=== PATIENT | female | born 1930 | race Hispanic/Latino ===

== ENCOUNTER 2017-09-28 17:07 | Emergency (ER) | payer OTHER ==
[~2017-09-28 17:07] MED LIST: ALEN70TA47 PO; CIPR250T6 PO; HUM10VIA SQ; LOSA1TAB37 PO; METF500T6 PO; PRAV10TA39 PO; SERT25TA5 PO
[2017-09-28] MEDS ORDERED: SODIUM CHLORIDE 0.9% 1000ML 1,000 ML IV ONE (18:08)
[2017-09-28] MEDS ORDERED: LOPERAMIDE HCL 2 MG CAP PO ONE (18:08)
== END 2017-09-28 19:02 | disposition home or self-care (01) ==
LOC: EDH 17:07
DX: R19.7 Diarrhea, unspecified (principal); R06.02 Shortness of breath; R42 Dizziness and giddiness; E11.9 Type 2 diabetes mellitus without complications; E78.5 Hyperlipidemia, unspecified; I10 Essential (primary) hypertension; Z90.79 Acquired absence of other genital organ(s)
CPT/HCPCS: 99284; J7030

== ENCOUNTER 2018-10-28 10:58 | Observation (INO) | payer OTHER ==
[~2018-10-28] VITALS: Ht 154.9 cm; Wt 75.5 kg
[~2018-10-28 10:58] MED LIST changes: +ALEN70TA10 PO; -ALEN70TA47 PO; +METF-444 PO; -METF500T6 PO
[2018-10-28 11:24] LABS: BASOPHILS % (AUTO) 0.1 % (0.0-5.0); EOSINOPHILS % (AUTO) 0.8 % (0.0-8.0); HEMATOCRIT 33.1 % (36-48); LYMPHOCYTES % (AUTO) 12.9 % (21.0-51.0); MEAN CORPUSCULAR HEMOGLOBIN 31.9 pg (27.0-33.0); MEAN CORPUSCULAR HGB CONC 34.1 g/dL (32.0-36.0); MEAN CORPUSCULAR VOLUME 93.7 fL (79-99); MONOCYTES % (AUTO) 6.8 % (3.0-13.0); NEUTROPHILS % (AUTO) 79.4 % (40.0-77.0); NUCLEATED RED BLOOD CELLS 0.1 % (0.0-0.19); PLATELET COUNT (AUTO) 164 K/uL (130-400); RED BLOOD CELL COUNT(AUTO) 3.54 MIL/uL (4.00-5.50); RED CELL DISTRIBUTION WIDTH 14.5 % (11.0-15.5); WHITE BLOOD COUNT (AUTO) 6.5 K/uL (4.8-10.8)
[2018-10-28 11:37] LABS: CREATININE 1.8 mg/dL (0.5-1.5); POTASSIUM 4.2 mmol/L (3.5-5.1)
[2018-10-28 11:41] LABS: BILIRUBIN,TOTAL 0.2 mg/dL (0.2-1.0); TOTAL PROTEIN, SERUM 6.6 g/dL (6.0-8.3)
[2018-10-28 11:58] LABS: INR 1.02 (0.85-1.15); PROTHROMBIN TIME 10.7 SEC (9.6-11.6)
[2018-10-28 12:26] LABS: PARTIAL THROMBOPLASTIN TIME 29.2 SEC (26.3-35.5)
[2018-10-28 13:31] LABS: APPEARANCE,URINE CLEAR (CLEAR); BILIRUBIN,URINE NEGATIVE (NEGATIVE); COLOR,URINE YELLOW (YELLOW); GLUCOSE, URINE (UA) NEGATIVE (NEGATIVE); KETONES,URINE NEGATIVE (NEGATIVE); LEUKOCYTE ESTERASE ,URINE SMALL (NEGATIVE); NITRATE,URINE POSITIVE (NEGATIVE); OCCULT BLOOD,URINE NEGATIVE (NEGATIVE); PH,URINE 5.5 (5.0-8.0); PROTEIN,URINE NEGATIVE (NEGATIVE); UROBILINOGEN,URINE 0.2 mg/dL (0.2-1.0)
[2018-10-28 13:41] LABS: RBC,URINE 0-1 /HPF (0-1)
[2018-10-28 13:42] LABS: BACTERIA,URINE Many /HPF (None Seen); SQUAMOUS EPITHELIAL CELL,UR Rare /HPF (0-2)
[2018-10-28] MEDS ORDERED: METRONIDAZOLE 500MG/100ML BAG 100 ML ONE (15:35)
[2018-10-28 16:23] LABS: AMYLASE 34 U/L (25-115); LIPASE 70 U/L (114-286)
[2018-10-28] MEDS: LACTATED RINGERS 1000ML 1,000 ML IV SCH (16:30)
[2018-10-28] MEDS: INSULIN R PO SS1 SQ SCH ×2 (16:30→21:00)
[2018-10-28] MEDS ORDERED: LACTATED RINGERS 1000ML 1,000 ML IV ONE (16:51)
[2018-10-28 23:02] VITALS: BP 111/72
[2018-10-29] MEDS: METRONIDAZOLE 500MG/100ML BAG 100 ML IVPB SCH ×2 (00:58→06:12)
[2018-10-29] MEDS ORDERED: ASPI-555 PO (01:03)
[2018-10-29] MEDS ORDERED: ERGO500014 PO (01:03)
[2018-10-29] MEDS ORDERED: ACET-2900 PO (01:03)
[2018-10-29] MEDS: LACTATED RINGERS 1000ML 1,000 ML IV SCH (03:04)
[2018-10-29 03:58] VITALS: BP 102/64
[2018-10-29 04:56] LABS: HEMATOCRIT 30.9 % (36-48); MEAN CORPUSCULAR HEMOGLOBIN 31.2 pg (27.0-33.0); MEAN CORPUSCULAR HGB CONC 33.7 g/dL (32.0-36.0); MEAN CORPUSCULAR VOLUME 92.8 fL (79-99); PLATELET COUNT (AUTO) 165 K/uL (130-400); RED BLOOD CELL COUNT(AUTO) 3.34 MIL/uL (4.00-5.50); RED CELL DISTRIBUTION WIDTH 14.4 % (11.0-15.5); WHITE BLOOD COUNT (AUTO) 5.9 K/uL (4.8-10.8)
[2018-10-29 05:11] LABS: ALBUMIN 2.4 g/dL (3.5-5.0); BILIRUBIN,TOTAL 0.2 mg/dL (0.2-1.0); CREATININE 0.9 mg/dL (0.5-1.5); POTASSIUM 3.8 mmol/L (3.5-5.1); TOTAL PROTEIN, SERUM 5.6 g/dL (6.0-8.3)
[2018-10-29] MEDS ORDERED: ACETAMINOPHEN 325 MG TAB PO PRN (05:30)
[2018-10-29 07:00] VITALS: BP 117/65
[2018-10-29] MEDS: INSULIN HUMULIN R 100 UNIT/ML 3ML SQ SCH ×2 (07:07→11:30)
--- NOTE | 2018-10-29 08:54 | NUR ---
Pt Update Pt admitted through the ER with complaints of diarrhea and GBW brought from home by EMS, no episodes of diarrhea since admission, gentle hydration continues, on empiric abx tx, nursing will continue to monitor, care endorsed.
[2018-10-29] MEDS ORDERED: ERGOCALCIFEROL (VITAMIN D2) 50,000 UNIT CAPSULE PO SCH (09:00)
[2018-10-29] MEDS ORDERED: LOSARTAN 50 MG TABLET PO SCH (09:00)
[2018-10-29] MEDS ORDERED: HYDROCHLOROTHIAZIDE 25 MG TABLET PO SCH (09:00)
[2018-10-29] MEDS ORDERED: ASPIRIN 81MG TAB.CHEW PO SCH (09:00)
--- NOTE | 2018-10-29 09:29 | NUR ---
VITAMIN D2 NOT GIVEN THIS AM, PATIENT TAKES ON THURSDAY.
[2018-10-29 11:00] VITALS: BP 135/68
--- NOTE | 2018-10-29 11:22 | NUR ---
DCP CM met with pt discussed dc plans. Pt is independent prior to admission, lives at home w/daughter. Pt has a cane at home. Denies any other equipments/services. Pt feels safe to go back home, daughter able to assist with transportation and needs. DC plan to home once stable. CM to cont to follow up. Addendum: 10/29/18 at 1125 by SARTHAK CRAWFORD LVN CM Amended: Links added.
[2018-10-29 16:00] VITALS: BP 159/79
--- NOTE | 2018-10-29 18:30 | NUR ---
DISCHARGE PATIENT/SON GIVEN DISCHARGE INSTRUCTIONS VIA TEACH BACK. 20G PIV TO LH DISCONTINUED, TIP INTACT. NO RX GIVEN, PATIENT TO STOP HYDROCHLOROTHIAZIDE UNTIL FOLLOW UP WITH DR. GALLEGO. PATIENT STABLE AT THIS TIME.
[2018-10-29] MEDS ORDERED: SERTRALINE HCL 50 MG TABLET PO SCH (21:00)
[2018-10-29] MEDS ORDERED: ***HM***Pravastatin Sodium 10 MG PO SCH (21:00)
[2018-10-30] MEDS ORDERED: ALENDRONATE SODIUM 35 MG TAB PO SCH (06:30)
== END 2018-10-29 18:45 | disposition home or self-care (01) ==
LOC: EDH 10:58 → EDHIP 15:05 → 3AH 22:30
PROVIDERS: ADMIT Internal Medicine Critical Care Medicine; ATTEND Internal Medicine Critical Care Medicine
DX: E86.0 Dehydration (principal); E86.9 Volume depletion, unspecified; E11.9 Type 2 diabetes mellitus without complications; E66.9 Obesity, unspecified; E78.5 Hyperlipidemia, unspecified; I10 Essential (primary) hypertension; F32.9 Major depressive disorder, single episode, unspecified; Z90.710 Acquired absence of both cervix and uterus; Z90.49 Acquired absence of other specified parts of digestive tract; Z79.899 Other long term (current) drug therapy; Z79.01 Long term (current) use of anticoagulants
CPT/HCPCS: 36415 ×2; 71045; 80053 ×2; 81001; 82150; 82550; 82948 ×5; 83690; 84484; 85025; 85027; 85610; 85730; 93005; 96361; 96365; 96366; 97039; 97161; 99291; G0378 ×28; G8978; G8979; G8980; G8981; G8982; G8983; J3490 ×4; J7120 ×2

== ENCOUNTER 2019-05-28 07:13 | Emergency (ER) | payer OTHER ==
[~2019-05-28 07:13] MED LIST changes: +ACET-3194 PO; +ASPI-555 PO; -CIPR250T6 PO; +ERGO500014 PO; -HUM10VIA SQ; -LOSA1TAB37 PO; -METF-444 PO
[2019-05-28 08:11] LABS: APPEARANCE,URINE Clear (CLEAR); BILIRUBIN,URINE Negative (NEGATIVE); COLOR,URINE Yellow (YELLOW); GLUCOSE, URINE (UA) Negative (NEGATIVE); KETONES,URINE Negative (NEGATIVE); LEUKOCYTE ESTERASE ,URINE Negative (NEGATIVE); NITRATE,URINE Negative (NEGATIVE); OCCULT BLOOD,URINE Negative (NEGATIVE); PH,URINE 6.5 (5.0-8.0); PROTEIN,URINE POS 1+ mg/dL (NEGATIVE)
[2019-05-28 08:21] LABS: BASOPHILS % (AUTO) 0.6 % (0.0-5.0); HEMATOCRIT 37.1 % (36-48); LYMPHOCYTES % (AUTO) 22.9 % (21.0-51.0); MEAN CORPUSCULAR HEMOGLOBIN 30.4 pg (27.0-33.0); MEAN CORPUSCULAR HGB CONC 33.6 g/dL (32.0-36.0); MEAN CORPUSCULAR VOLUME 90.5 fL (79-99); MONOCYTES % (AUTO) 8.9 % (3.0-13.0); NEUTROPHILS % (AUTO) 62.6 % (40.0-77.0); PLATELET COUNT (AUTO) 215 K/uL (130-400); WHITE BLOOD COUNT (AUTO) 8.3 K/uL (4.8-10.8)
[2019-05-28 08:35] LABS: CREATININE 0.9 mg/dL (0.5-1.5); POTASSIUM 4.5 mmol/L (3.5-5.1)
[2019-05-28 08:50] LABS: BACTERIA,URINE Rare /HPF (None Seen); RBC,URINE 0-1 /HPF (0-1); SQUAMOUS EPITHELIAL CELL,UR Rare /HPF (0-2); WBC,URINE 0-1 /HPF (0-1)
== END 2019-05-28 10:38 | disposition home or self-care (01) ==
LOC: EDH 07:13
DX: S02.2XXA Fracture of nasal bones, initial encounter for closed fracture (principal); S60.221A Contusion of right hand, initial encounter; E11.9 Type 2 diabetes mellitus without complications; I10 Essential (primary) hypertension; E78.5 Hyperlipidemia, unspecified; Z90.710 Acquired absence of both cervix and uterus; Z90.49 Acquired absence of other specified parts of digestive tract; Z98.890 Other specified postprocedural states; W18.39XA Other fall on same level, initial encounter; Y93.89 Activity, other specified; Y92.89 Other specified places as the place of occurrence of the external cause; Y99.8 Other external cause status
CPT/HCPCS: 29125; 36415; 70450; 70486; 73090; 73110; 73130; 80048; 81001; 85025; 93005

== ENCOUNTER 2020-08-05 23:18 | Inpatient (IN) | payer OTHER ==
[~2020-08-05] VITALS: Ht 154.9 cm; Wt 76.1 kg
[~2020-08-05 23:18] MED LIST changes: -ALEN70TA10 PO; +ALEN70TA80 PO; -ASPI-555 PO; +ASPI-556 PO
[2020-08-06] MEDS ORDERED: ACETAMINOPHEN 325 MG TAB ONE ×2 (00:53→10:24)
[2020-08-06] MEDS ORDERED: AZITHROMYCIN 500MG+NS 250ML 250 ML IV ONE (00:53)
[2020-08-06] MEDS ORDERED: CEFTRIAXONE SODIUM 2 GM VIAL ONE (00:53)
[2020-08-06 01:16] LABS: CARBON DIOXIDE 30 mmol/L (21-32); CHLORIDE 103 mmol/L (101-111); CREATININE 1.1 mg/dL (0.5-1.5); GLOMERULAR FILTR. RATE CALC 50 mL/min (>60); GLUCOSE,RANDOM 211 mg/dL (70-105); POTASSIUM 4.9 mmol/L (3.5-5.1); SODIUM SERUM 142 mmol/L (136-145); UREA NITROGEN, BLOOD 41 mg/dL (7-18)
[2020-08-06 01:21] LABS: ABG BASE EXCESS 0.2 mmol/L (-2.0-3.0); ABG HCO3 25.4 mmol/L (21.0-28.0); ABG OXYGEN SATURATION 92.5 % (95.0-99.0); ABG PCO2 43 mmHg (32-45)
[2020-08-06 01:27] LABS: ALANINE AMINOTRANSFERASE 16 U/L (12-78); ALBUMIN 2.9 g/dL (3.5-5.0); ASPARTATE AMINOTRANSFERASE 21 U/L (10-37); BILIRUBIN,TOTAL 0.3 mg/dL (0.2-1.0); CREATINE KINASE, TOTAL 26 U/L (21-232); MYOGLOBIN 44 ng/mL (10-92); TOTAL PROTEIN, SERUM 6.5 g/dL (6.0-8.3); TROPONIN I < 0.04 ng/mL (0.00-0.06)
[2020-08-06 01:37] LABS: BASOPHILS % (AUTO) 0.3 % (0.0-5.0); EOSINOPHILS % (AUTO) 0.6 % (0.0-8.0); HEMATOCRIT 36.5 % (36-48); LYMPHOCYTES % (AUTO) 13.1 % (21.0-51.0); MEAN CORPUSCULAR HEMOGLOBIN 29.1 pg (27.0-33.0); MEAN CORPUSCULAR HGB CONC 31.8 g/dL (32.0-36.0); MEAN CORPUSCULAR VOLUME 91.7 fL (79-99); MONOCYTES % (AUTO) 9.3 % (3.0-13.0); NEUTROPHILS % (AUTO) 76.3 % (40.0-77.0); PLATELET COUNT (AUTO) 145 K/uL (130-400); RED BLOOD CELL COUNT(AUTO) 3.98 MIL/uL (4.00-5.50); RED CELL DISTRIBUTION WIDTH 15.1 % (11.0-15.5); WHITE BLOOD COUNT (AUTO) 6.9 K/uL (4.8-10.8)
[2020-08-06 01:46] LABS: INR 1.05 (0.85-1.15); PROTHROMBIN TIME 11.2 SEC (9.6-11.6)
[2020-08-06 01:47] LABS: PARTIAL THROMBOPLASTIN TIME 30.8 SEC (26.3-35.5)
[2020-08-06 05:33] LABS: BASOPHILS % (AUTO) 0.2 % (0.0-5.0); EOSINOPHILS % (AUTO) 0.5 % (0.0-8.0); HEMATOCRIT 32.1 % (36-48); LYMPHOCYTES % (AUTO) 21.5 % (21.0-51.0); MEAN CORPUSCULAR HEMOGLOBIN 29.6 pg (27.0-33.0); MEAN CORPUSCULAR HGB CONC 32.1 g/dL (32.0-36.0); MEAN CORPUSCULAR VOLUME 92.2 fL (79-99); MONOCYTES % (AUTO) 9.9 % (3.0-13.0); NEUTROPHILS % (AUTO) 67.3 % (40.0-77.0); PLATELET COUNT (AUTO) 140 K/uL (130-400); RED BLOOD CELL COUNT(AUTO) 3.48 MIL/uL (4.00-5.50); RED CELL DISTRIBUTION WIDTH 15.1 % (11.0-15.5); WHITE BLOOD COUNT (AUTO) 6.6 K/uL (4.8-10.8)
[2020-08-06 06:10] LABS: B-TYPE NATRIURETIC PEPTIDE 169 pg/mL (0-100)
[2020-08-06 06:44] LABS: BASOPHILS % (AUTO) 0.2 % (0.0-5.0); EOSINOPHILS % (AUTO) 0.5 % (0.0-8.0); LYMPHOCYTES % (AUTO) 24.6 % (21.0-51.0); MEAN CORPUSCULAR HEMOGLOBIN 28.6 pg (27.0-33.0); MEAN CORPUSCULAR HGB CONC 31.2 g/dL (32.0-36.0); MEAN CORPUSCULAR VOLUME 91.6 fL (79-99); MONOCYTES % (AUTO) 11.4 % (3.0-13.0); NEUTROPHILS % (AUTO) 62.8 % (40.0-77.0); PLATELET COUNT (AUTO) 129 K/uL (130-400); RED BLOOD CELL COUNT(AUTO) 3.71 MIL/uL (4.00-5.50); RED CELL DISTRIBUTION WIDTH 15.1 % (11.0-15.5); WHITE BLOOD COUNT (AUTO) 6.2 K/uL (4.8-10.8)
[2020-08-06 06:50] LABS: CREATININE 1.2 mg/dL (0.5-1.5); POTASSIUM 4.6 mmol/L (3.5-5.1)
[2020-08-06 07:02] LABS: INR 1.07 (0.85-1.15); PROTHROMBIN TIME 11.4 SEC (9.6-11.6)
[2020-08-06 07:03] LABS: PARTIAL THROMBOPLASTIN TIME 32.3 SEC (26.3-35.5)
[2020-08-06 07:17] LABS: B-TYPE NATRIURETIC PEPTIDE 223 pg/mL (0-100)
[2020-08-06] MEDS ORDERED: GLUCAGON 1MG KIT 1 MG ML IM PRN (07:30)
[2020-08-06] MEDS: INSULIN R PO SS2 SQ SCH (07:30)
[2020-08-06] MEDS ORDERED: ACETAMINOPHEN 325 MG TAB PO PRN (07:30)
[2020-08-06] MEDS ORDERED: DEXTROSE 50%-WATER 50 ML DISP.SYRIN IV PRN (07:30)
[2020-08-06] MEDS: METHYLPREDNISOLONE SOD SUCC 40MG/ML 1ML IVP SCH (07:30)
[2020-08-06] MEDS: ENOXAPARIN SODIUM 40 MG/0.4 ML SYRINGE SQ SCH (09:00)
[2020-08-06] MEDS: FUROSEMIDE 10 MG/ML 4ML VIAL IVP SCH ×2 (09:00→21:00)
[2020-08-06] MEDS: IBUPROFEN 600 MG TABLET PO SCH (09:00)
[2020-08-06] MEDS ORDERED: FUROSEMIDE 10 MG/ML 4ML VIAL ONE (10:23)
[2020-08-06] MEDS ORDERED: ENOXAPARIN SODIUM 40 MG/0.4 ML SYRINGE SQ ONE (10:23)
[2020-08-06] MEDS ORDERED: METHYLPREDNISOLONE SOD SUCC 40MG/ML 1ML ONE ×2 (10:23→16:06)
[2020-08-06] MEDS ORDERED: INSULIN HUMULIN R 100 UNIT/ML 3ML ONE ×3 (10:24→16:09)
[2020-08-07] MEDS ORDERED: AZITHROMYCIN 500MG+NS 250ML 250 ML IV ONE (00:04)
[2020-08-07] MEDS ORDERED: METHYLPREDNISOLONE SOD SUCC 40MG/ML 1ML ONE ×2 (00:37→07:59)
[2020-08-07] MEDS ORDERED: FUROSEMIDE 10 MG/ML 4ML VIAL ONE ×2 (00:38→08:00)
[2020-08-07] MEDS ORDERED: CEFTRIAXONE SODIUM 1 GM ONE (00:38)
[2020-08-07] MEDS ORDERED: INSULIN HUMULIN R 100 UNIT/ML 3ML ONE ×3 (00:39→17:19)
[2020-08-07 05:46] LABS: HEMATOCRIT 34.8 % (36-48); MEAN CORPUSCULAR HEMOGLOBIN 29.3 pg (27.0-33.0); MEAN CORPUSCULAR HGB CONC 32.2 g/dL (32.0-36.0); MEAN CORPUSCULAR VOLUME 91.1 fL (79-99); RED BLOOD CELL COUNT(AUTO) 3.82 MIL/uL (4.00-5.50); WHITE BLOOD COUNT (AUTO) 6.4 K/uL (4.8-10.8)
[2020-08-07 06:03] LABS: CREATININE 1.3 mg/dL (0.5-1.5); MAGNESIUM 1.5 mg/dL (1.80-2.40); PHOSPHORUS 4.3 mg/dL (2.5-4.9); POTASSIUM 4.2 mmol/L (3.5-5.1)
[2020-08-07] MEDS ORDERED: IBUPROFEN 400 MG TABLET ONE (08:00)
[2020-08-07] MEDS ORDERED: ENOXAPARIN SODIUM 40 MG/0.4 ML SYRINGE SQ ONE (08:00)
[2020-08-07] MEDS ORDERED: IBUPROFEN 200 MG TAB ONE (08:01)
[2020-08-07] MEDS ORDERED: MAGNESIUM 2GM PREMIX 50ML 50 ML IV PRN (08:45)
[2020-08-07] MEDS ORDERED: MAGNESIUM 2GM PREMIX 50ML 50 ML IV ONE (08:58)
[2020-08-07] MEDS: CEFTRIAXONE SODIUM 1 GM IVP SCH (09:00)
[2020-08-07] MEDS: FUROSEMIDE 10 MG/ML 4ML VIAL IVP SCH ×2 (09:00→23:09)
[2020-08-07] MEDS: AZITHROMYCIN 500MG+NS 250ML 250 ML IV SCH (09:00)
[2020-08-07] MEDS: ENOXAPARIN SODIUM 40 MG/0.4 ML SYRINGE SQ SCH (09:00)
[2020-08-07 11:30] LABS: APPEARANCE,URINE Cloudy (CLEAR); BILIRUBIN,URINE Negative (NEGATIVE); COLOR,URINE Yellow (YELLOW); GLUCOSE, URINE (UA) Negative (NEGATIVE); KETONES,URINE Negative (NEGATIVE); LEUKOCYTE ESTERASE ,URINE Large (NEGATIVE); NITRATE,URINE Negative (NEGATIVE); OCCULT BLOOD,URINE Small (NEGATIVE); PROTEIN,URINE Negative (NEGATIVE); UROBILINOGEN,URINE 0.2 mg/dL (0.2-1.0)
[2020-08-07 11:40] LABS: BACTERIA,URINE Few /HPF (None Seen)
[2020-08-07] MEDS: METHYLPREDNISOLONE SOD SUCC 40MG/ML 1ML IVP SCH ×2 (15:30→23:08)
[2020-08-07] MEDS: INSULIN R PO SS2 SQ SCH ×2 (16:30→23:11)
[2020-08-07] MEDS: IBUPROFEN 600 MG TABLET PO SCH ×2 (17:00→23:09)
[2020-08-07 21:19] VITALS: BP 136/61
[2020-08-07 23:36] VITALS: BP 118/44
[2020-08-08] MEDS ORDERED: INSULIN HUMULIN R 100 UNIT/ML 3ML SQ ONE ×2 (00:30→02:15)
[2020-08-08] MEDS: INSULIN R PO SS2 SQ SCH ×4 (00:41→21:29)
[2020-08-08 03:55] VITALS: BP 116/52
[2020-08-08 06:06] LABS: HEMATOCRIT 34.6 % (36-48); MEAN CORPUSCULAR HGB CONC 32.1 g/dL (32.0-36.0); MEAN CORPUSCULAR VOLUME 90.3 fL (79-99); RED BLOOD CELL COUNT(AUTO) 3.83 MIL/uL (4.00-5.50); WHITE BLOOD COUNT (AUTO) 15.3 K/uL (4.8-10.8)
[2020-08-08 06:21] LABS: CREATININE 1.6 mg/dL (0.5-1.5); POTASSIUM 3.9 mmol/L (3.5-5.1)
[2020-08-08] MEDS: METHYLPREDNISOLONE SOD SUCC 40MG/ML 1ML IVP SCH ×3 (07:25→21:20)
[2020-08-08 08:55] VITALS: BP 120/53
[2020-08-08] MEDS: FUROSEMIDE 10 MG/ML 4ML VIAL IVP SCH ×3 (09:14→21:41)
[2020-08-08] MEDS: CEFTRIAXONE SODIUM 1 GM IVP SCH (09:14)
[2020-08-08] MEDS: IBUPROFEN 600 MG TABLET PO SCH ×4 (09:14→21:19)
[2020-08-08] MEDS: ENOXAPARIN SODIUM 40 MG/0.4 ML SYRINGE SQ SCH (09:15)
[2020-08-08] MEDS: AZITHROMYCIN 500MG+NS 250ML 250 ML IV SCH (09:16)
[2020-08-08 12:55] VITALS: BP 94/59
[2020-08-08 16:55] VITALS: BP 111/69
[2020-08-08 19:55] VITALS: BP 109/62
[2020-08-09 00:45] VITALS: BP 96/64
[2020-08-09 04:34] VITALS: BP 110/56
[2020-08-09] MEDS: METHYLPREDNISOLONE SOD SUCC 40MG/ML 1ML IVP SCH ×3 (06:45→20:23)
[2020-08-09] MEDS: INSULIN R PO SS2 SQ SCH ×4 (06:47→21:32)
[2020-08-09 07:37] LABS: BASOPHILS % (AUTO) 0.1 % (0.0-5.0); HEMATOCRIT 35.1 % (36-48); LYMPHOCYTES % (AUTO) 5.3 % (21.0-51.0); MEAN CORPUSCULAR HEMOGLOBIN 28.9 pg (27.0-33.0); MEAN CORPUSCULAR HGB CONC 32.2 g/dL (32.0-36.0); MEAN CORPUSCULAR VOLUME 89.8 fL (79-99); MONOCYTES % (AUTO) 5.9 % (3.0-13.0); PLATELET COUNT (AUTO) 212 K/uL (130-400); RED BLOOD CELL COUNT(AUTO) 3.91 MIL/uL (4.00-5.50); WHITE BLOOD COUNT (AUTO) 13.1 K/uL (4.8-10.8)
[2020-08-09 07:55] LABS: POTASSIUM 4.5 mmol/L (3.5-5.1)
[2020-08-09 08:26] VITALS: BP 109/75
[2020-08-09] MEDS: IBUPROFEN 600 MG TABLET PO SCH ×4 (08:54→20:24)
[2020-08-09] MEDS: AZITHROMYCIN 500MG+NS 250ML 250 ML IV SCH (09:00)
[2020-08-09] MEDS: ENOXAPARIN SODIUM 40 MG/0.4 ML SYRINGE SQ SCH (09:01)
[2020-08-09] MEDS: CEFTRIAXONE SODIUM 1 GM IVP SCH (09:05)
[2020-08-09 12:55] VITALS: BP 110/57
[2020-08-09 16:58] VITALS: BP 102/53
[2020-08-09 20:28] VITALS: BP 113/71
[2020-08-10 00:28] VITALS: BP 105/61
[2020-08-10 04:28] VITALS: BP 111/69
[2020-08-10 04:57] LABS: HEMATOCRIT 35.7 % (36-48); MEAN CORPUSCULAR HEMOGLOBIN 28.1 pg (27.0-33.0); MEAN CORPUSCULAR HGB CONC 31.4 g/dL (32.0-36.0); MEAN CORPUSCULAR VOLUME 89.5 fL (79-99); RED BLOOD CELL COUNT(AUTO) 3.99 MIL/uL (4.00-5.50); RED CELL DISTRIBUTION WIDTH 15.2 % (11.0-15.5)
[2020-08-10 05:23] LABS: CREATININE 1.4 mg/dL (0.5-1.5); POTASSIUM 4.2 mmol/L (3.5-5.1)
[2020-08-10] MEDS: INSULIN R PO SS2 SQ SCH ×4 (06:17→20:43)
[2020-08-10] MEDS: METHYLPREDNISOLONE SOD SUCC 40MG/ML 1ML IVP SCH ×3 (06:22→20:41)
[2020-08-10] MEDS: CEFTRIAXONE SODIUM 1 GM IVP SCH (07:47)
[2020-08-10] MEDS: AZITHROMYCIN 500MG+NS 250ML 250 ML IV SCH (07:47)
[2020-08-10] MEDS: ENOXAPARIN SODIUM 40 MG/0.4 ML SYRINGE SQ SCH (07:47)
[2020-08-10] MEDS: IBUPROFEN 600 MG TABLET PO SCH ×4 (07:48→20:41)
[2020-08-10 08:56] VITALS: BP 117/65
[2020-08-10 12:58] VITALS: BP 135/58
[2020-08-10 16:11] VITALS: BP 126/59
[2020-08-10 20:00] VITALS: BP 131/50
[2020-08-11 00:45] VITALS: BP 164/56
[2020-08-11 05:27] VITALS: BP 142/59
[2020-08-11] MEDS: INSULIN R PO SS2 SQ SCH ×4 (05:59→21:13)
[2020-08-11] MEDS: METHYLPREDNISOLONE SOD SUCC 40MG/ML 1ML IVP SCH (06:02)
[2020-08-11 06:11] LABS: HEMATOCRIT 34.9 % (36-48); MEAN CORPUSCULAR HEMOGLOBIN 28.8 pg (27.0-33.0); MEAN CORPUSCULAR HGB CONC 32.4 g/dL (32.0-36.0); NUCLEATED RED BLOOD CELLS 0.1 % (0.0-0.19); RED BLOOD CELL COUNT(AUTO) 3.92 MIL/uL (4.00-5.50); RED CELL DISTRIBUTION WIDTH 15.5 % (11.0-15.5); WHITE BLOOD COUNT (AUTO) 16.7 K/uL (4.8-10.8)
[2020-08-11 06:37] LABS: BILIRUBIN,TOTAL 0.3 mg/dL (0.2-1.0); CREATININE 1.2 mg/dL (0.5-1.5); POTASSIUM 4.4 mmol/L (3.5-5.1); TOTAL PROTEIN, SERUM 6.2 g/dL (6.0-8.3)
[2020-08-11 08:31] VITALS: BP 142/74
[2020-08-11] MEDS: AZITHROMYCIN 500MG+NS 250ML 250 ML IV SCH (08:46)
[2020-08-11] MEDS: CEFTRIAXONE SODIUM 1 GM IVP SCH (08:46)
[2020-08-11] MEDS: IBUPROFEN 600 MG TABLET PO SCH ×4 (08:47→21:07)
[2020-08-11] MEDS: ENOXAPARIN SODIUM 40 MG/0.4 ML SYRINGE SQ SCH (08:47)
[2020-08-11 10:18] LABS: ABG BASE EXCESS -1.5 mmol/L (-2.0-3.0); ABG HCO3 23.1 mmol/L (21.0-28.0); ABG OXYGEN SATURATION 89.7 % (95.0-99.0); ABG PCO2 39 mmHg (32-45)
[2020-08-11 11:30] VITALS: BP 97/50
[2020-08-11] MEDS ORDERED: METHYLPREDNISOLONE SOD SUCC 125MG/2ML VIAL IVP SCH (13:15)
[2020-08-11] MEDS: FUROSEMIDE 10 MG/ML 2ML VIAL IV SCH (15:26)
[2020-08-11 16:28] VITALS: BP 149/53
[2020-08-11] MEDS: METHYLPREDNISOLONE SOD SUCC 125MG/2ML VIAL IVP SCH ×2 (18:34→23:56)
[2020-08-11 20:44] VITALS: BP 144/62
[2020-08-12] VITALS (7 sets, daily range): BP systolic 107–163; BP diastolic 41–71
[2020-08-12] MEDS: METHYLPREDNISOLONE SOD SUCC 125MG/2ML VIAL IVP SCH ×2 (06:23→11:50)
[2020-08-12] MEDS: INSULIN R PO SS2 SQ SCH ×4 (06:23→21:47)
[2020-08-12 06:26] LABS: HEMATOCRIT 35.3 % (36-48); MEAN CORPUSCULAR HGB CONC 32.6 g/dL (32.0-36.0); MEAN CORPUSCULAR VOLUME 89.1 fL (79-99); RED BLOOD CELL COUNT(AUTO) 3.96 MIL/uL (4.00-5.50); RED CELL DISTRIBUTION WIDTH 15.6 % (11.0-15.5); WHITE BLOOD COUNT (AUTO) 13.1 K/uL (4.8-10.8)
[2020-08-12 06:43] LABS: CREATININE 1.1 mg/dL (0.5-1.5); MAGNESIUM 2.1 mg/dL (1.80-2.40); PHOSPHORUS 4.2 mg/dL (2.5-4.9); POTASSIUM 4.4 mmol/L (3.5-5.1)
[2020-08-12 07:26] LABS: APPEARANCE,URINE CLEAR (CLEAR); BILIRUBIN,URINE NEGATIVE (NEGATIVE); COLOR,URINE YELLOW (YELLOW); GLUCOSE, URINE (UA) NEGATIVE (NEGATIVE); KETONES,URINE NEGATIVE (NEGATIVE); LEUKOCYTE ESTERASE ,URINE NEGATIVE (NEGATIVE); NITRATE,URINE NEGATIVE (NEGATIVE); OCCULT BLOOD,URINE NEGATIVE (NEGATIVE); PH,URINE 5.5 (5.0-8.0); PROTEIN,URINE NEGATIVE (NEGATIVE); UROBILINOGEN,URINE 0.2 mg/dL (0.2-1.0)
[2020-08-12] MEDS: AZITHROMYCIN 500MG+NS 250ML 250 ML IV SCH (08:40)
[2020-08-12] MEDS: IBUPROFEN 600 MG TABLET PO SCH ×4 (08:40→20:55)
[2020-08-12] MEDS: ENOXAPARIN SODIUM 40 MG/0.4 ML SYRINGE SQ SCH (08:41)
[2020-08-12] MEDS: CEFTRIAXONE SODIUM 1 GM IVP SCH (08:41)
[2020-08-12] MEDS ORDERED: INS7030 SQ (11:08)
[2020-08-12] MEDS ORDERED: LOSA25TA41 PO (11:08)
[2020-08-12] MEDS ORDERED: ERGO500014 PO (11:08)
[2020-08-12] MEDS ORDERED: LEVO50 PO (11:08)
[2020-08-12] MEDS ORDERED: FOLI1TAB61 PO (11:08)
[2020-08-12] MEDS: FUROSEMIDE 10 MG/ML 2ML VIAL IV SCH (13:15)
[2020-08-12] MEDS: METHYLPREDNISOLONE SOD SUCC 40MG/ML 1ML IVP SCH (20:54)
[2020-08-13] VITALS (7 sets, daily range): BP systolic 86–128; BP diastolic 32–96
[2020-08-13] MEDS: METHYLPREDNISOLONE SOD SUCC 40MG/ML 1ML IVP SCH ×4 (03:31→18:50)
[2020-08-13] MEDS: LEVOTHYROXINE 25 MCG TABLET PO SCH (06:16)
[2020-08-13 06:27] LABS: HEMATOCRIT 34.7 % (36-48); MEAN CORPUSCULAR HEMOGLOBIN 29.2 pg (27.0-33.0); MEAN CORPUSCULAR HGB CONC 32.3 g/dL (32.0-36.0); MEAN CORPUSCULAR VOLUME 90.6 fL (79-99); RED BLOOD CELL COUNT(AUTO) 3.83 MIL/uL (4.00-5.50); RED CELL DISTRIBUTION WIDTH 15.9 % (11.0-15.5); WHITE BLOOD COUNT (AUTO) 19.4 K/uL (4.8-10.8)
[2020-08-13] MEDS: INSULIN R PO SS2 SQ SCH ×4 (06:28→22:19)
[2020-08-13] MEDS: INSULIN HUMULIN 70/30 100 UNIT/ML 3ML SQ SCH (06:30)
[2020-08-13 06:44] LABS: POTASSIUM 4.2 mmol/L (3.5-5.1)
[2020-08-13] MEDS ORDERED: INSULIN HUMULIN 70/30 100 UNIT/ML 3ML SQ SCH (07:30)
[2020-08-13] MEDS ORDERED: LEVOTHYROXINE 25 MCG TABLET PO SCH (07:30)
[2020-08-13] MEDS: IBUPROFEN 600 MG TABLET PO SCH ×4 (09:00→21:00)
[2020-08-13] MEDS: CEFTRIAXONE SODIUM 1 GM IVP SCH (10:11)
[2020-08-13] MEDS: LOSARTAN 50 MG TABLET PO SCH (10:12)
[2020-08-13] MEDS: AZITHROMYCIN 500MG+NS 250ML 250 ML IV SCH (10:13)
[2020-08-13] MEDS: Vitamin B Complex/Vit C/Folic Acid PO SCH (10:13)
[2020-08-13] MEDS: ENOXAPARIN SODIUM 40 MG/0.4 ML SYRINGE SQ SCH (10:14)
[2020-08-13] MEDS: FUROSEMIDE 10 MG/ML 2ML VIAL IV SCH (13:15)
[2020-08-13] MEDS ORDERED: SODIUM CHLORIDE 0.9% 250 ML IV ONE (20:59)
[2020-08-13] MEDS ORDERED: SODIUM CHLORIDE 0.9% 500ML 500 ML IV SCH (21:00)
[2020-08-13] MEDS ORDERED: SODIUM CHLORIDE 0.9% 500ML 250 ML IV SCH (21:00)
[2020-08-14 00:29] VITALS: BP 95/59
[2020-08-14] MEDS: METHYLPREDNISOLONE SOD SUCC 40MG/ML 1ML IVP SCH ×2 (01:32→06:44)
[2020-08-14 04:52] VITALS: BP 112/65
[2020-08-14 05:59] LABS: HEMATOCRIT 32.3 % (36-48); MEAN CORPUSCULAR HEMOGLOBIN 28.1 pg (27.0-33.0); MEAN CORPUSCULAR HGB CONC 31.6 g/dL (32.0-36.0); RED BLOOD CELL COUNT(AUTO) 3.63 MIL/uL (4.00-5.50); RED CELL DISTRIBUTION WIDTH 15.7 % (11.0-15.5); WHITE BLOOD COUNT (AUTO) 15.9 K/uL (4.8-10.8)
[2020-08-14 06:19] LABS: CREATININE 1.1 mg/dL (0.5-1.5); POTASSIUM 4.3 mmol/L (3.5-5.1)
[2020-08-14] MEDS: LEVOTHYROXINE 25 MCG TABLET PO SCH (06:44)
[2020-08-14] MEDS: INSULIN R PO SS2 SQ SCH ×4 (06:56→21:27)
[2020-08-14] MEDS: INSULIN HUMULIN 70/30 100 UNIT/ML 3ML SQ SCH (07:56)
[2020-08-14 08:33] VITALS: BP 103/59
[2020-08-14] MEDS: IBUPROFEN 600 MG TABLET PO SCH ×4 (09:00→20:43)
[2020-08-14] MEDS: AZITHROMYCIN 500MG+NS 250ML 250 ML IV SCH (09:35)
[2020-08-14] MEDS: Vitamin B Complex/Vit C/Folic Acid PO SCH (09:40)
[2020-08-14] MEDS: LOSARTAN 50 MG TABLET PO SCH (09:40)
[2020-08-14] MEDS: CEFTRIAXONE SODIUM 1 GM IVP SCH (09:41)
[2020-08-14] MEDS: METHYLPREDNISOLONE SOD SUCC 125MG/2ML VIAL IVP SCH ×2 (09:46→17:49)
[2020-08-14] MEDS: ENOXAPARIN SODIUM 40 MG/0.4 ML SYRINGE SQ SCH (09:48)
[2020-08-14 12:17] VITALS: BP 113/68
[2020-08-14] MEDS: FUROSEMIDE 10 MG/ML 2ML VIAL IV SCH (13:15)
[2020-08-14 16:54] VITALS: BP 115/61
[2020-08-14 20:09] VITALS: BP 133/64
[2020-08-15 00:20] VITALS: BP 144/82
[2020-08-15] MEDS: METHYLPREDNISOLONE SOD SUCC 125MG/2ML VIAL IVP SCH ×3 (01:14→16:26)
[2020-08-15 04:25] VITALS: BP 129/63
[2020-08-15 04:47] LABS: HEMATOCRIT 31.1 % (36-48); MEAN CORPUSCULAR HEMOGLOBIN 29.3 pg (27.0-33.0); MEAN CORPUSCULAR HGB CONC 32.5 g/dL (32.0-36.0); MEAN CORPUSCULAR VOLUME 90.1 fL (79-99); RED BLOOD CELL COUNT(AUTO) 3.45 MIL/uL (4.00-5.50); RED CELL DISTRIBUTION WIDTH 15.9 % (11.0-15.5); WHITE BLOOD COUNT (AUTO) 16.3 K/uL (4.8-10.8)
[2020-08-15 04:58] LABS: CREATININE 1.1 mg/dL (0.5-1.5); POTASSIUM 4.3 mmol/L (3.5-5.1)
[2020-08-15] MEDS: LEVOTHYROXINE 25 MCG TABLET PO SCH (06:25)
[2020-08-15] MEDS: INSULIN R PO SS2 SQ SCH ×4 (06:30→22:04)
[2020-08-15] MEDS: AZITHROMYCIN 500MG+NS 250ML 250 ML IV SCH (08:28)
[2020-08-15] MEDS: Vitamin B Complex/Vit C/Folic Acid PO SCH (08:29)
[2020-08-15] MEDS: CEFTRIAXONE SODIUM 1 GM IVP SCH (08:29)
[2020-08-15] MEDS: LOSARTAN 50 MG TABLET PO SCH (08:29)
[2020-08-15] MEDS: ENOXAPARIN SODIUM 40 MG/0.4 ML SYRINGE SQ SCH (08:30)
[2020-08-15 08:31] VITALS: BP 114/72
[2020-08-15] MEDS: INSULIN HUMULIN 70/30 100 UNIT/ML 3ML SQ SCH (08:32)
[2020-08-15] MEDS: FUROSEMIDE 10 MG/ML 2ML VIAL IV SCH (11:20)
[2020-08-15] MEDS ORDERED: IBUPROFEN 600 MG TABLET PO PRN (11:30)
[2020-08-15 11:45] LABS: ABG BASE EXCESS 2.3 mmol/L (-2.0-3.0); ABG HCO3 26.9 mmol/L (21.0-28.0); ABG OXYGEN SATURATION 94.3 % (95.0-99.0); ABG PCO2 41 mmHg (32-45)
[2020-08-15 12:55] VITALS: BP 108/67
[2020-08-15 16:50] VITALS: BP 159/53
[2020-08-15 20:09] VITALS: BP 131/67
[2020-08-16] VITALS (8 sets, daily range): BP systolic 91–136; BP diastolic 43–72
[2020-08-16] MEDS: METHYLPREDNISOLONE SOD SUCC 125MG/2ML VIAL IVP SCH ×3 (01:22→17:12)
[2020-08-16 04:43] LABS: BASOPHILS % (AUTO) 0.1 % (0.0-5.0); HEMATOCRIT 34.1 % (36-48); LYMPHOCYTES % (AUTO) 1.9 % (21.0-51.0); MEAN CORPUSCULAR HEMOGLOBIN 28.5 pg (27.0-33.0); MEAN CORPUSCULAR HGB CONC 31.4 g/dL (32.0-36.0); MEAN CORPUSCULAR VOLUME 90.7 fL (79-99); MONOCYTES % (AUTO) 3.3 % (3.0-13.0); NEUTROPHILS % (AUTO) 93.5 % (40.0-77.0); PLATELET COUNT (AUTO) 293 K/uL (130-400); RED BLOOD CELL COUNT(AUTO) 3.76 MIL/uL (4.00-5.50); RED CELL DISTRIBUTION WIDTH 15.9 % (11.0-15.5); WHITE BLOOD COUNT (AUTO) 22.4 K/uL (4.8-10.8)
[2020-08-16 05:05] LABS: CREATININE 0.9 mg/dL (0.5-1.5)
[2020-08-16] MEDS: LEVOTHYROXINE 25 MCG TABLET PO SCH (06:02)
[2020-08-16] MEDS: INSULIN HUMULIN 70/30 100 UNIT/ML 3ML SQ SCH (06:30)
[2020-08-16] MEDS: INSULIN R PO SS2 SQ SCH ×4 (07:30→21:00)
[2020-08-16] MEDS ORDERED: DRONABINOL 2.5 MG CAP PO ONE (08:00)
[2020-08-16] MEDS: Vitamin B Complex/Vit C/Folic Acid PO SCH (09:00)
[2020-08-16] MEDS: AZITHROMYCIN 500MG+NS 250ML 250 ML IV SCH (09:00)
[2020-08-16] MEDS: ENOXAPARIN SODIUM 40 MG/0.4 ML SYRINGE SQ SCH (09:00)
[2020-08-16] MEDS: CEFTRIAXONE SODIUM 1 GM IVP SCH (09:00)
[2020-08-16] MEDS: LOSARTAN 50 MG TABLET PO SCH (09:00)
[2020-08-16] MEDS: FUROSEMIDE 10 MG/ML 2ML VIAL IV SCH (12:16)
[2020-08-16] MEDS ORDERED: FUROSEMIDE 10 MG/ML 2ML VIAL IV SCH (13:00)
[2020-08-16] MEDS ORDERED: METOPROLOL TARTRATE 1 MG/ML 5ML VIAL IV PRN (22:30)
[2020-08-17] VITALS (11 sets, daily range): BP systolic 45–132; BP diastolic 24–88
[2020-08-17] MEDS: METHYLPREDNISOLONE SOD SUCC 125MG/2ML VIAL IVP SCH (00:57)
[2020-08-17] MEDS ORDERED: LACTATED RINGERS 1000ML 1,000 ML IV ONE (03:23)
[2020-08-17] MEDS ORDERED: LACTATED RINGERS 1000ML IV SCH (03:30)
[2020-08-17 05:08] LABS: ABG BASE EXCESS -1.3 mmol/L (-2.0-3.0); ABG OXYGEN SATURATION 96.5 % (95.0-99.0); ABG PCO2 48 mmHg (32-45)
[2020-08-17 05:11] LABS: HEMATOCRIT 33.1 % (36-48); MEAN CORPUSCULAR HEMOGLOBIN 28.9 pg (27.0-33.0); MEAN CORPUSCULAR VOLUME 90.2 fL (79-99); NUCLEATED RED BLOOD CELLS 0.1 % (0.0-0.19); PLATELET COUNT (AUTO) 186 K/uL (130-400); RED BLOOD CELL COUNT(AUTO) 3.67 MIL/uL (4.00-5.50); RED CELL DISTRIBUTION WIDTH 16.1 % (11.0-15.5)
[2020-08-17 05:16] LABS: WHITE BLOOD COUNT (AUTO) 37.8 K/uL (4.8-10.8)
[2020-08-17 05:30] LABS: B-TYPE NATRIURETIC PEPTIDE 900 pg/mL (0-100)
[2020-08-17] MEDS ORDERED: AMIODARONE HCL 900 MG in DEXTROSE 5%-WATER 500 ML IV SCH (05:30)
[2020-08-17] MEDS ORDERED: AMIODARONE HCL 150 MG in DEXTROSE 5%-WATER 100 ML IV SCH (05:30)
[2020-08-17] MEDS ORDERED: DEXTROSE 5%-WATER 100 ML IV ONE (05:32)
[2020-08-17] MEDS ORDERED: AMIODARONE HCL 50 MG/ML 3 ML VIAL ONE (05:33)
[2020-08-17 05:38] LABS: BAND NEUTROPHILS % (MANUAL) 12 % (0-2); LYMPHOCYTES % (MANUAL) 9 % (22-44); SEGMENTED NEUTROPHILS % 79 % (40-70)
[2020-08-17 05:39] LABS: MAN.DIFF COMMENT-IMPRESSION MANUAL DIFFERENTIAL; PLATELET MORPHOLOGY COMMENT ADEQUATE
[2020-08-17 05:41] LABS: CREATININE 1.3 mg/dL (0.5-1.5); POTASSIUM 4.9 mmol/L (3.5-5.1); THYROID STIMULATING HORMONE 0.46 uIU/mL (0.36-3.74)
[2020-08-17 06:00] LABS: INR 1.2 (0.85-1.15); PROTHROMBIN TIME 12.9 SEC (9.6-11.6)
[2020-08-17] MEDS: LEVOTHYROXINE 25 MCG TABLET PO SCH (06:09)
[2020-08-17] MEDS: INSULIN HUMULIN 70/30 100 UNIT/ML 3ML SQ SCH (06:09)
[2020-08-17] MEDS ORDERED: METOPROLOL TARTRATE 25 MG TAB PO SCH (09:00)
[2020-08-19] MEDS ORDERED: ERGOCALCIFEROL PO SCH (09:00)
== END 2020-08-17 09:24 | disposition expired | DRG 177 ==
LOC: EDH 23:18 → OBSVTOIN 08-06 01:27 → EDHIP 08-06 01:27 → 4BH 08-07 20:31
PROVIDERS: ADMIT Internal Medicine Pulmonary Disease; ATTEND Internal Medicine Pulmonary Disease
PROC: 5A09357 Assistance with Respiratory Ventilation, Less than 24 Consecutive Hours, Continuous Positive Airway Pressure (ICD-10-PCS; principal; 2020-08-16)
PROC: 5A09357 Assistance with Respiratory Ventilation, Less than 24 Consecutive Hours, Continuous Positive Airway Pressure (ICD-10-PCS; 2020-08-17)
DX: U07.1 COVID-19 (principal); J12.82 Pneumonia due to coronavirus disease 2019; J96.01 Acute respiratory failure with hypoxia; D84.9 Immunodeficiency, unspecified; E11.9 Type 2 diabetes mellitus without complications; I50.9 Heart failure, unspecified; I11.0 Hypertensive heart disease with heart failure; M06.9 Rheumatoid arthritis, unspecified; Z66 Do not resuscitate; E66.9 Obesity, unspecified; R53.81 Other malaise; H91.90 Unspecified hearing loss, unspecified ear; I48.0 Paroxysmal atrial fibrillation; Z68.31 Body mass index [BMI] 31.0-31.9, adult; Z87.440 Personal history of urinary (tract) infections
CPT/HCPCS: 36415; 36600; 71045; 71250; 80048; 80053; 81001; 81003; 82550; 82728; 82803; 82947; 82948; 83605; 83735; 83874; 83880; 84100; 84145; 84443; 84484; 85025; 85027; 85378; 85610; 85730; 86140; 86900; 86901; 87040; 87088; 87426; 87804; 93005; 94660; 94760; 97039; A4606; G0378; J0282; J0456; J0696; J1650; J1815; J1940; J2920; J2930; J3475; J3490; J7040; J7050; J7060; J7070; J7120; Q0167